=== PATIENT | male | born 1990 | race Hispanic/Latino ===

== ENCOUNTER 2018-12-15 11:25 | Emergency (ER) | payer SELFPAY ==
--- NOTE | 2018-12-15 13:12 | RAD REPORT ---
EXAM DESCRIPTION: RAD - Chest Pa And Lat (2 Views) - 12/15/2018 1:06 pm CLINICAL HISTORY: CHEST PAIN Chest pain. COMPARISON: No comparisons FINDINGS: The lungs are clear. The heart is normal in size. No displaced fractures. IMPRESSION: No acute or concerning finding suspected.
[2018-12-15] MEDS ORDERED: NA CHLORIDE 0.9% 1,000 ML ONE (13:52)
[2018-12-15] MEDS ORDERED: KETOROLAC 30 MG/ML INJ ONE (13:52)
[2018-12-15 14:03] LABS: Absolute Lymphocytes (CBC) 1.2 K/uL (0.7-4.9); Absolute Monocytes 0.8 K/uL (0.1-1.3); Absolute Neutrophil 9.2 K/uL (1.8-8.0); Basophils % 0.3 % (0-1.3); Hematocrit 43.2 % (39.6-49.0); Lymphocytes % 10.5 % (15.3-44.8); MPV 6.9 fL (7.6-11.3); Monocytes % 7.3 % (3.3-12.3)
[2018-12-15] MEDS ORDERED: METHYLPREDNISOLONE 125 MG INJ ONE (14:07)
[2018-12-15 14:12] LABS: BUN Blood Urea Nitrogen 12 mg/dL (7-18); Bicarbonate 26 mmol/L (21-32); Glucose Level 90 mg/dL (74-106); Potassium 3.9 mmol/L (3.5-5.1); Sodium Level 138 mmol/L (136-145)
--- NOTE | 2018-12-15 15:03 | EKG ---
Test Date: 2018-12-15 Test Time: 11:35:53 Cover Operator: JOHANA MEASUREMENT RESULTS: Intervals: Rate: 109 WV: 150 QRSD: 86 QT: 314 QTc: 422 [place]: P: 60 WV: 150 QRS: 39 T: 31 INTERPRETIVE STATEMENTS: Sinus tachycardia Otherwise normal ECG No previous ECG available for comparison Electronically Signed On 12-15-18 15:01:52 CDT by Gaurav Dunlap
--- NOTE | 2018-12-15 17:32 | RAD REPORT ---
EXAM DESCRIPTION: MRI - Brain Wo Cont - 12/15/2018 4:49 pm CLINICAL HISTORY: Dizziness COMPARISON: none TECHNIQUE: Axial, sagittal, and coronal magnetic images of the brain were obtained. Contrast was not requested FINDINGS: A 6 millimeter area of abnormal signal left cortez radiata. No additional abnormal signal within the brain noted. Diffusion-weighted/ADC mapping does not reveal evidence of acute infarction. The ventricles are normal caliber. An extra-axial fluid collection is not present Small area of inspissated mucus within the sphenoid sinus. Moderate to marked signal ethmoid sinus. M ild mucoperiosteal thickening frontal and sphenoid sinus. [id number] left maxillary sinusitis. Fluid within the mastoids is not noted IMPRESSION: A 6 millimeter area of abnormal signal within the left cortez radiata may be secondary t o migraine, vasculitis or ischemic changes secondary to small vessel disease Sinusitis
--- NOTE | 2018-12-15 18:18 | ER ---
Nurse's Notes [facility] Name: Gavin Garner Age: 28 yrs Sex: Male : 1990 Arrival Date: 12/15/2018 Time: 11:26 Bed 23 Private MD: None, None Diagnosis: Pleurisy;Headache Presentation: 12/15 11:28 Presenting complaint: Patient states: headache, tiffany ear pressure, left arm pain that sv goes into the left side of the chest, pain with inspiration x 3 days. Transition of care: patient was not received from another setting of care. Onset of symptoms was December 12, 2018. Initial Sepsis Screen: Does the patient meet any 2 criteria? No. Patient's initial sepsis screen is negative. Does the patient have a suspected source of infection? No. Patient's initial sepsis screen is negative. Care prior to arrival: None. 11:28 Method Of Arrival: Ambulatory sv 11:28 Acuity: GISELA 3 sv 13:16 Risk Assessment: Do you want to hurt yourself or someone else? Patient reports no ca1 desire to harm self or others. Triage Assessment: 11:28 General: Appears in no apparent distress. uncomfortable, well developed, Behavior is sv calm, cooperative, appropriate for age. Pain: Complains of pain in face, right ear, left ear, right eye, left eye, left lateral anterior chest and left arm Pain currently is 5 out of 10 on a pain scale. Pain began 2-3 days ago. Is intermittent. EENT: Reports pain in left ear and right ear. Neuro: Level of Consciousness is awake, alert, obeys commands, Oriented to person, place, time, situation, Gait is steady, Speech is normal. Respiratory: Respiratory effort is even, unlabored, Respiratory pattern is regular, symmetrical. Derm: Skin is pink, warm \T\ dry. Historical: - Allergies: 11:30 No Known Allergies; sv - PMHx: 11:30 None; sv - PSHx: 11:30 eye; sv - Immunization history:: Adult Immunizations up to date. - Social history:: Smoking status: Patient/guardian denies using tobacco. - Ebola Screening: : No symptoms or risks identified at this time. Screenin:12 Abuse screen: Denies threats or abuse. Denies injuries from another. Nutritional ca1 screening: No deficits noted. Tuberculosis screening: No symptoms or risk factors identified. Fall Risk None identified. Assessment: 13:12 General: Appears in no apparent distress. comfortable, Behavior is calm, cooperative, ca1 appropriate for age. Pain: Complains of pain in chest and left lateral anterior chest Pain radiates to left arm Pain currently is 5 out of 10 on a pain scale. at worst was 8 out of 10 on a pain scale. Quality of pain is described as burning, Pain began a week ago Is intermittent, lasting a few minutes. Aggravated by. Neuro: Level of Consciousness is awake, alert, obeys commands, Oriented to person, place, time, situation. Neuro: Reports headache in left. Cardiovascular: Heart tones S1 S2 present Capillary refill < 3 seconds Patient's skin is warm and dry. Respiratory: Airway is patent Respiratory effort is even, unlabored, Respiratory pattern is regular, symmetrical, Breath sounds are clear bilaterally. GI: Abdomen is round non-distended, Bowel sounds present X 4 quads. Abd is soft and non tender X 4 quads. : No deficits noted. No signs and/or symptoms were reported regarding the genitourinary system. EENT: Tympanic membrane clear on left ear and right ear Ear canal clear on left ear and right ear Throat is pink Reports ear pain on the left side and feels like there is air. Derm: Skin is intact, is healthy with good turgor, Skin is pink, warm \T\ dry. Musculoskeletal: Circulation, motion, and sensation intact. Capillary refill < 3 seconds, Range of motion: limited in all extremities. 14:05 Reassessment: Patient appears in no apparent distress at this time. Patient and/or ca1 family updated on plan of care and expected duration. Pain level reassessed. Patient is alert, oriented x 3, equal unlabored respirations, skin warm/dry/pink. 15:04 Reassessment: Patient appears in no apparent distress at this time. Patient is alert, ca1 oriented x 3, equal unlabored respirations, skin warm/dry/pink. 16:02 Reassessment: Patient appears in no apparent distress at this time. Patient and/or ca1 family updated on plan of care and expected duration. Pain level reassessed. Patient is alert, oriented x 3, equal unlabored respirations, skin warm/dry/pink. 16:26 Reassessment: Pt to MRI. ca1 17:36 Reassessment: Patient appears in no apparent distress at this time. Patient and/or ca1 family updated on plan of care and expected duration. Pain level reassessed. Patient is alert, oriented x 3, equal unlabored respirations, skin warm/dry/pink. 18:35 Reassessment: Patient appears in no apparent distress at this time. Patient is alert, ca1 oriented x 3, equal unlabored respirations, skin warm/dry/pink. Vital Signs: 11:30 BP 152 / 92; Pulse 107; Resp 20; Temp 99.4; Pulse Ox 99% ; Weight 85.73 kg; Height 5 sv ft. 6 in. (167.64 cm); Pain 5/10; 13:15 BP 133 / 92 LA (auto/lg); Pulse 102; Temp 99.7(O); Pulse Ox 100% on R/A; Pain 5/10; jp3 14:05 BP 117 / 77; Pulse 89; Resp 18 S; Temp 99.1(O); Pulse Ox 98% on R/A; ca1 15:04 BP 142 / 77; Pulse 96; Resp 17 S; Temp 99.3(O); Pulse Ox 98% on R/A; ca1 16:00 BP 121 / 78; Pulse 86; Resp 17 S; Temp 99.3(O); Pulse Ox 98% on R/A; ca1 17:36 BP 124 / 75; Pulse 88; Resp 17 S; Temp 98.7(O); Pulse Ox 100% on R/A; ca1 18:35 BP 125 / 78; Pulse 87; Resp 17 S; Temp 98.4(O); Pulse Ox 98% on R/A; ca1 11:30 Body Mass Index 30.51 (85.73 kg, 167.64 cm) sv ED Course: 11:26 Patient arrived in ED. mr 11:27 None, None is Private Physician. mr 11:29 Triage completed. sv 11:30 Arm band placed on. sv 11:35 EKG completed in triage. Results shown to . sv 12:18 Onur Merino MD is Attending Physician. kdr 13:02 Sally Armenta, RN is Primary Nurse. ca1 13:07 Chest Pa And Lat (2 Views) XRAY In Process Unspecified. EDMS 13:12 No provider procedures requiring assistance completed. ca1 13:15 Bed in low position. Call light in reach. Side rails up X 1. Warm blanket given. Verbal jp3 reassurance given. Pulse ox on. NIBP on. 16:31 Patient moved to MRI via wheelchair. ka 16:37 MRI - Brain Wo Cont In Process Unspecified. EDMS 17:04 MRI completed. Patient tolerated well. Patient moved back from MRI. ka 18:07 called Marilyn at the [facility] for neurologist director of acquisitions for a patient eb consultation. 18:43 IV discontinued, intact, bleeding controlled, No redness/swelling at site. Pressure ca1 dressing applied. Administered Medications: 13:45 Drug: NS 0.9% 1000 ml Route: IV; Rate: 1 bolus; Site: right antecubital; ca1 15:00 Follow up: Urine output 190 ml; Response: No adverse reaction; IV Status: Completed ca1 infusion 13:46 Drug: TORadol - Ketorolac 15 mg Route: IVP; Site: right antecubital; ca1 18:41 Follow up: Response: No adverse reaction; Pain is decreased ca1 13:53 Drug: SOLU-Medrol 125 mg Route: IVP; Site: right antecubital; ca1 18:40 Follow up: Response: No adverse reaction ca1 Output: 15:00 Urine: 190ml; Total: 190ml. ca1 Outcome: 18:17 Discharge ordered by . kdr 18:47 Discharged to home ambulatory, with family. ca1 18:47 Condition: stable 18:47 Discharge instructions given to patient, Instructed on discharge instructions, follow up and referral plans. medication usage, Demonstrated understanding of instructions, follow-up care, medications, Prescriptions given X 3. 18:48 Patient left the ED. ca1 Signatures: Dispatcher [employer] EDMS Ember Deal, Onur Saba RN, MD MD kdr Rivera, Barbara mr Praveena Jasso Elizabeth eb Pisarski, Jacob jp3 Sally Armenta RN RN ca1
--- NOTE | 2018-12-15 18:18 | EDPHYS ---
Physician Documentation [facility] Name: Gavin Garner Age: 28 yrs Sex: Male : 1990 Arrival Date: 12/15/2018 Time: 11:26 Bed 23 Private MD: None, None ED Physician Onur Merino HPI: 12/16 07:35 This 28 yrs old Male presents to ER via Ambulatory with complaints of Ear kdr Pain, Arm Pain, Headache. 12/15 13:27 The patient c/o left chest pain/lateral thorax pain for a week that is worse with kdr breathing and coughing. Left arm and side of face numbness for three days. . Severity of symptoms: At their worst the symptoms were mild in the emergency department the symptoms are unchanged. The patient has not experienced similar symptoms in the past. The patient has not recently seen a physician. Historical: - Allergies: 11:30 No Known Allergies; sv - PMHx: 11:30 None; sv - PSHx: 11:30 eye; sv - Immunization history:: Adult Immunizations up to date. - Social history:: Smoking status: Patient/guardian denies using tobacco. - Ebola Screening: : No symptoms or risks identified at this time. ROS: 13:27 Constitutional: Negative for fever, chills, and weight loss, Eyes: Negative for injury, kdr pain, redness, and discharge, Neck: Negative for injury, pain, and swelling, Respiratory: Negative for shortness of breath, cough, wheezing, and pleuritic chest pain, Abdomen/GI: Negative for abdominal pain, nausea, vomiting, diarrhea, and constipation, Back: Negative for injury and pain, : Negative for injury, bleeding, discharge, and swelling, MS/Extremity: Negative for injury and deformity, Skin: Negative for injury, rash, and discoloration, Neuro: Negative for headache, weakness, numbness, tingling, and seizure activity. Psych: Negative for depression, anxiety, suicide ideation, homicidal ideation, and hallucinations, Allergy/Immunology: Negative for hives, rash, and allergies, Endocrine: Negative for neck swelling, polydipsia, polyuria, polyphagia, and marked weight changes, Hematologic/Lymphatic: Negative for swollen nodes, abnormal bleeding, and unusual bruising. 13:27 Cardiovascular: Positive for chest pain, with cough, with movement, of the left lateral anterior chest and left lateral posterior chest. Exam: 13:27 Constitutional: This is a well developed, well nourished patient who is awake, alert, kdr and in no acute distress. Head/Face: Normocephalic, atraumatic. Eyes: Pupils equal round and reactive to light, extra-ocular motions intact. Lids and lashes normal. Conjunctiva and sclera are non-icteric and not injected. Cornea within normal limits. Periorbital areas with no swelling, redness, or edema. ENT: Nares patent. No nasal discharge, no septal abnormalities noted. Tympanic membranes are normal and external auditory canals are clear. Oropharynx with no redness, swelling, or masses, exudates, or evidence of obstruction, uvula midline. Mucous membranes moist. Neck: Trachea midline, no thyromegaly or masses palpated, and no cervical lymphadenopathy. Supple, full range of motion without nuchal rigidity, or vertebral point tenderness. No Meningismus. Cardiovascular: Regular rate and rhythm with a normal S1 and S2. No gallops, murmurs, or rubs. Normal PMI, no JVD. No pulse deficits. Respiratory: Lungs have equal breath sounds bilaterally, clear to auscultation and percussion. No rales, rhonchi or wheezes noted. No increased work of breathing, no retractions or nasal flaring. Abdomen/GI: Soft, non-tender, with normal bowel sounds. No distension or tympany. No guarding or rebound. No evidence of tenderness throughout. Back: No spinal tenderness. No costovertebral tenderness. Full range of motion. Skin: Warm, dry with normal turgor. Normal color with no rashes, no lesions, and no evidence of cellulitis. MS/ Extremity: Pulses equal, no cyanosis. Neurovascular intact. Full, normal range of motion. Psych: Awake, alert, with orientation to person, place and time. Behavior, mood, and affect are within normal limits. 13:27 Chest/axilla: Inspection: normal, Palpation: tenderness, that is mild, of the left lateral anterior chest and left lateral posterior chest, that totally reproduces the patient's complaints. Vital Signs: 11:30 BP 152 / 92; Pulse 107; Resp 20; Temp 99.4; Pulse Ox 99% ; Weight 85.73 kg; Height 5 sv ft. 6 in. (167.64 cm); Pain 5/10; 13:15 BP 133 / 92 LA (auto/lg); Pulse 102; Temp 99.7(O); Pulse Ox 100% on R/A; Pain 5/10; jp3 14:05 BP 117 / 77; Pulse 89; Resp 18 S; Temp 99.1(O); Pulse Ox 98% on R/A; ca1 15:04 BP 142 / 77; Pulse 96; Resp 17 S; Temp 99.3(O); Pulse Ox 98% on R/A; ca1 16:00 BP 121 / 78; Pulse 86; Resp 17 S; Temp 99.3(O); Pulse Ox 98% on R/A; ca1 17:36 BP 124 / 75; Pulse 88; Resp 17 S; Temp 98.7(O); Pulse Ox 100% on R/A; ca1 18:35 BP 125 / 78; Pulse 87; Resp 17 S; Temp 98.4(O); Pulse Ox 98% on R/A; ca1 11:30 Body Mass Index 30.51 (85.73 kg, 167.64 cm) sv MDM: 13:27 Data reviewed: vital signs, nurses notes, lab test result(s), EKG, radiologic studies. kdr Counseling: I had a detailed discussion with the patient and/or guardian regarding: the historical points, exam findings, and any diagnostic results supporting the discharge/admit diagnosis, lab results, radiology results, the need for outpatient follow up. 18:14 Physician consultation: Jac Sadler MD regarding consult, patient's condition, and kdr will see patient in office, next week, Lesion noted on MRI do not fit patient presentation. No acute MRI findings to indicate a stgroke.. 18:17 Patient medically screened. kdr 12/15 11:31 Order name: Flu; Complete Time: 16:40 sv 12/15 13:26 Order name: CBC with Diff; Complete Time: 14:53 kdr 12/15 11:38 Order name: Chest Pa And Lat (2 Views) XRAY; Complete Time: 13:25 sv 12/15 13:26 Order name: Chem 7; Complete Time: 14:53 kdr 12/15 15:30 Order name: MRI - Brain Wo Cont; Complete Time: 17:52 kdr 12/15 11:28 Order name: EKG; Complete Time: 11:29 sv 12/15 11:28 Order name: EKG - Nurse/Tech; Complete Time: 11:38 sv Administered Medications: 13:45 Drug: NS 0.9% 1000 ml Route: IV; Rate: 1 bolus; Site: right antecubital; ca1 15:00 Follow up: Urine output 190 ml; Response: No adverse reaction; IV Status: Completed ca1 infusion 13:46 Drug: TORadol - Ketorolac 15 mg Route: IVP; Site: right antecubital; ca1 18:41 Follow up: Response: No adverse reaction; Pain is decreased ca1 13:53 Drug: SOLU-Medrol 125 mg Route: IVP; Site: right antecubital; ca1 18:40 Follow up: Response: No adverse reaction ca1 Disposition: 12/15/18 18:17 Discharged to Home. Impression: Pleurisy, Headache. - Condition is Stable. - Discharge Instructions: General Headache Without Cause, Pain Without a Known Cause. - Prescriptions for Ibuprofen 600 mg Oral Tablet - take 1 tablet by ORAL route every 6 hours As needed take with food; 30 tablet. Tramadol 50 mg Oral Tablet - take 1 tablet by ORAL route every 8 hours as needed; 12 tablet. Medrol (Rex) 4 mg Oral Tablets, Dose Pack - take 1 tablet by ORAL route as directed - follow package instructions; 1 packet. - Medication Reconciliation Form, Thank You Letter form. - Follow up: Private Physician; When: 2 - 3 days; Reason: If symptoms return, Further diagnostic work-up, Recheck today's complaints, Continuance of care, Re-evaluation by your physician. - Problem is new. - Symptoms have improved. Signatures: Dispatcher [employer] Ember Jorge RN RN Onur Merino MD MD [facility] Sally Armenta RN RN ca1 Corrections: (The following items were deleted from the chart) 18:48 18:17 12/15/2018 18:17 Discharged to Home. Impression: Pleurisy; Headache. Condition is ca1 Stable. Forms are Medication Reconciliation Form, Thank You Letter, Antibiotic Education, Prescription Opioid Use. Follow up: Private Physician; When: 2 - 3 days; Reason: If symptoms return, Further diagnostic work-up, Recheck today's complaints, Continuance of care, Re-evaluation by your physician. Problem is new. Symptoms have improved. kdr
== END 2018-12-15 18:48 | disposition home or self-care (01) ==
LOC: ER 11:25
DX: R09.1 Pleurisy (principal); R51 Headache
CPT/HCPCS: 36415; 70551; 71046; 80048; 85025; 87804; 93005; 96361; 96374; 96375; 99284; J2930; J7030